=== PATIENT | female | born 1955 | race Caucasian/White ===

== ENCOUNTER → 2017-07-29 | Outpatient (CLI) | payer OTHER ==
[2017-07-29 08:39] LABS: ABSOLUTE LYMPHOCYTES (AUTO) 0.9 10^3/uL (0.5-4.7); ABSOLUTE MONOCYTES (AUTO) 0.3 10^3/uL (0.1-1.4); ABSOLUTE NEUT (AUTO) 1.5 10^3/uL (1.7-8.2); BASOPHILS % (AUTO) 0.7 % (0-2); HEMATOCRIT 40.2 % (36.0-47.0); HEMOGLOBIN 13.7 g/dL (12.0-15.5); LYMPHOCYTES % (AUTO) 31.7 % (13-45); MEAN CORPUSCULAR HEMOGLOBIN 31.1 pg (27.0-33.4); MEAN CORPUSCULAR HGB CONC 34.1 g/dL (32.0-36.0); MEAN CORPUSCULAR VOLUME 91 fl (80-97); MONOCYTES % (AUTO) 11.9 % (3-13); PLATELET COUNT 318 10^3/uL (150-450); RED BLOOD COUNT 4.41 10^6/uL (3.72-5.28); RED CELL DISTRIBUTION WIDTH 13.1 % (11.5-14.0); SEGMENTED NEUTROPHILS % (AUTO) 54.7 % (42-78); TOTAL CELLS COUNTED % (AUTO) 100 %; WHITE BLOOD COUNT 2.8 10^3/uL (4.0-10.5)
[2017-07-29 09:09] LABS: ALANINE AMINOTRANSFERASE 34 U/L (9-52); ALBUMIN 4.1 g/dL (3.5-5.0); ALKALINE PHOSPHATASE 76 U/L (38-126); ANION GAP 7 (5-19); ASPARTATE AMINO TRANSFERASE 26 U/L (14-36); BILIRUBIN,DIRECT 0.2 mg/dL (0.0-0.4); BILIRUBIN,TOTAL 0.7 mg/dL (0.2-1.3); BLOOD UREA NITROGEN 14 mg/dL (7-20); CALCIUM 9.9 mg/dL (8.4-10.2); CARBON DIOXIDE 30 mmol/L (22-30); CHLORIDE 105 mmol/L (98-107); CHOLESTEROL 169.85 mg/dL (0-200); GLUCOSE 91 mg/dL (75-110); MAGNESIUM 1.9 mg/dL (1.6-2.3); POTASSIUM 4.8 mmol/L (3.6-5.0); SODIUM 141.5 mmol/L (137-145); TOTAL PROTEIN 6.4 g/dL (6.3-8.2); TRIGLYCERIDES 32 mg/dL (<150); URIC ACID 3.9 mg/dL (2.5-7.5)
[2017-07-29 09:20] LABS: DIRECT LDL 58 mg/dL (<100)
--- NOTE | 2017-07-29 12:14 | RADIOLOGY REPORT (SQ) ---
EXAM DESCRIPTION: KNEE RIGHT 4 VIEWS COMPLETED DATE/TIME: 07/29/2017 8:40 am REASON FOR STUDY: PAIN IN RT KNEE M25.561 PAIN IN RIGHT KNEE M25.551 PAIN IN RIGHT HIP M25.571 PA IN IN RIGHT ANKLE AND JOINTS OF RIGHT FOOT COMPARISON: None. NUMBER OF VIEWS: Four views. TECHNIQUE: AP, lateral, and both oblique radiographic images acquired of the right knee. LIMITATIONS: None. FINDINGS: MINERALIZATION: Normal. BONES: No acute fracture or dislocation. No worrisome bone lesions. No significant osteophytes. JOINT: No effusion. No chondrocalcinosis. OTHER: No other significant finding. IMPRESSION: NEGATIVE STUDY OF THE RIGHT KNEE. NO EXPLANATION FOR PAIN. TECHNICAL DOCUMENTATION: JOB ID: [id number] [employer]- All Rights Reserved
--- NOTE | 2017-07-29 12:15 | RADIOLOGY REPORT (SQ) ---
EXAM DESCRIPTION: HIP RIGHT AP/LATERAL COMPLETED DATE/TIME: 07/29/2017 8:40 am REASON FOR STUDY: PAIN IN RT HIP M25.561 PAIN IN RIGHT KNEE M25.551 PAIN IN RIGHT HIP M25.571 GUALBERTO N IN RIGHT ANKLE AND JOINTS OF RIGHT FOOT COMPARISON: None. NUMBER OF VIEWS: Two views. TECHNIQUE: AP and frog-leg view of the right hip. LIMITATIONS: None. FINDINGS: MINERALIZATION: Normal. RIGHT HIP: No fracture dislocation. There is joint space narrowing. There is a prominent subchondra l cysts in the acetabulum. This measures 2.5 cm in greatest diameter. OPPOSITE HIP: No fracture or dislocation. No worrisome bone lesions. SOFT TISSUES: No findings. OTHER: No other significant finding. IMPRESSION: Asymmetric degenerative changes in the right hip with a prominent subchondral cyst. No acute fracture or dislocation. TECHNICAL DOCUMENTATION: JOB ID: [id number] [employer]- All Rights Reserved
--- NOTE | 2017-07-29 12:16 | RADIOLOGY REPORT (SQ) ---
EXAM DESCRIPTION: ANKLE RIGHT COMPLETE COMPLETED DATE/TIME: 07/29/2017 8:40 am REASON FOR STUDY: PAIN IN RIGHT ANKLE AND JOINTS OF RIGHT FOOT,RT HIP, RT KNEE M25.561 PAIN IN RIGH T KNEE M25.551 PAIN IN RIGHT HIP M25.571 PAIN IN RIGHT ANKLE AND JOINTS OF RIGHT FOOT COMPARISON: None. NUMBER OF VIEWS: Three views. TECHNIQUE: AP, lateral, and oblique without weight bearing radiographic images acquired of the right ankle. LIMITATIONS: None. FINDINGS: MINERALIZATION: Normal. BONES: No acute fracture or dislocation. No worrisome bone lesions. No significant osteophytes. JOINTS: No effusions. SOFT TISSUES: No soft tissue swelling. No foreign body. OTHER: No other significant finding. IMPRESSION: NO SIGNIFICANT FINDING IN THE RIGHT ANKLE. NO EXPLANATION FOR PAIN. TECHNICAL DOCUMENTATION: JOB ID: [id number] [employer]- All Rights Reserved
== END ==
LOC: OD 07:55
PROVIDERS: ATTEND Family Medicine Geriatric Medicine
DX: M25.561 Pain in right knee (principal); M25.551 Pain in right hip; M25.571 Pain in right ankle and joints of right foot; R25.2 Cramp and spasm; G47.00 Insomnia, unspecified; Z79.899 Other long term (current) drug therapy; M25.851 Other specified joint disorders, right hip
CPT/HCPCS: 36415; 80053; 80061; 83735; 84443; 84550; 85025

== ENCOUNTER → 2017-07-30 | Outpatient (CLI) | payer OTHER ==
--- NOTE | 2017-07-30 17:00 | WOMENS IMAGING REPORT ---
EXAM DESCRIPTION: BILAT SCREENING MAMMO W/CAD COMPLETED DATE/TIME: 07/30/2017 3:06 pm REASON FOR STUDY: ROUTINE SCREENING; Z12.31 Z12.31 ENCNTR SCREEN MAMMOGRAM FOR MALIGNANT NEOPLASM O F SKYLER COMPARISON: None. TECHNIQUE: Standard craniocaudal and mediolateral oblique views of each breast recorded using digita l acquisition. LIMITATIONS: None. FINDINGS: No masses, calcifications or architectural distortion. No areas of suspicion. Read with the assistance of CAD. .[facility] - R2 Cenova Version 1.3 .[facility] Imaging - R2 Cenova Version 1.3 .[facility] Imaging - R2 Cenova Version 2.4 .[facility] [place] - R2 Cenova Version 2.4 .ON LICENSE OF [facility] - R2 Jawbone Breaker Version 9.2 IMPRESSION: NORMAL MAMMOGRAM. BIRADS 1. BREAST DENSITY: c. The breasts are heterogeneously dense, which may obscure small masses. BIRAD: 1 NEGATIVE RECOMMENDATION: ROUTINE SCREENING Please consider bilateral screening tomosynthesis in June 2018 given heterogeneously dense tissue. COMMENT: The patient has been notified of the results by letter per SA requirements. Additional no tification policies are in place for contacting patient with suspicious or incomplete findings. Quality ID #225: The [employer] recommends an annual screening mammogram for women aged 40 years or over. This facility utilizes a reminder system to ensure that all patients receive reminder letters, and/or direct phone calls for appointments. This includes reminders for routine scr eening mammograms, diagnostic mammograms, or other Breast Imaging Interventions when appropriate. Th is patient will be placed in the appropriate reminder system. The [employer] (ACR) has developed recommendations for screening MRI of the breast s in certain patient populations, to be used in conjunction with mammography. Breast MRI surveillanc e may be appropriate for women with more than 20% lifetime risk of developing breast cancer as deter mined by genetic testing, significant family history of the disease, or history of mantle radiation f or Hodgkins Disease. ACR Practice Guidelines 2008. TECHNICAL DOCUMENTATION: FINDING NUMBER: (1) ASSESSMENT: (1) JOB ID: [id number] [employer]- All Rights Reserved
== END ==
LOC: WI 14:40
PROVIDERS: ATTEND Nurse Practitioner Women's Health
DX: Z12.31 Encounter for screening mammogram for malignant neoplasm of breast (principal)
CPT/HCPCS: 77067

== ENCOUNTER → 2017-09-01 | Outpatient (CLI) | payer OTHER ==
[2017-09-01 13:50] LABS: ABSOLUTE EOSINOPHILS # (AUTO) 0.1 10^3/uL (0.0-0.6); ABSOLUTE LYMPHOCYTES (AUTO) 1.5 10^3/uL (0.5-4.7); ABSOLUTE MONOCYTES (AUTO) 0.5 10^3/uL (0.1-1.4); ABSOLUTE NEUT (AUTO) 3.7 10^3/uL (1.7-8.2); BASOPHILS % (AUTO) 0.4 % (0-2); EOSINOPHILS % (AUTO) 1.1 % (0-6); HEMATOCRIT 39.1 % (36.0-47.0); HEMOGLOBIN 13.6 g/dL (12.0-15.5); LYMPHOCYTES % (AUTO) 25.9 % (13-45); MEAN CORPUSCULAR HEMOGLOBIN 30.8 pg (27.0-33.4); MEAN CORPUSCULAR HGB CONC 34.6 g/dL (32.0-36.0); MEAN CORPUSCULAR VOLUME 89 fl (80-97); MONOCYTES % (AUTO) 8.8 % (3-13); PLATELET COUNT 322 10^3/uL (150-450); RED CELL DISTRIBUTION WIDTH 12.6 % (11.5-14.0); SEGMENTED NEUTROPHILS % (AUTO) 63.8 % (42-78); TOTAL CELLS COUNTED % (AUTO) 100 %; WHITE BLOOD COUNT 5.8 10^3/uL (4.0-10.5)
== END ==
LOC: OD 13:08
PROVIDERS: ATTEND Family Medicine Geriatric Medicine
DX: D72.819 Decreased white blood cell count, unspecified (principal)
CPT/HCPCS: 36415; 85025

== ENCOUNTER → 2018-07-01 | Outpatient (CLI) | payer OTHER ==
--- NOTE | 2018-07-01 16:04 | RADIOLOGY REPORT (SQ) ---
EXAM DESCRIPTION: CT ABD/PELVIS NO ORAL OR IV COMPLETED DATE/TIME: 07/01/2018 3:53 pm REASON FOR STUDY: CHRONIC ABDOMINAL PAIN COMPARISON: None. TECHNIQUE: CT scan of the abdomen and pelvis performed without intravenous or oral contrast. Images reviewed with lung, soft tissue, and bone windows. Reconstructed coronal and sagittal MPR images revi ewed. All images stored on PACS. All CT scanners at this facility use dose modulation, iterative reconstruction, and/or weight based d osing when appropriate to reduce radiation dose to as low as reasonably achievable (ALARA). [facility]: Dose Right [facility]: CareDose [facility]: Dose Right [facility]: Teradose 4D [facility]: J-Kan RADIATION DOSE: CT Rad equipment meets quality standard of care and radiation dose reduction techniq ues were employed. CTDIvol: 6.6 mGy. DLP: 344 mGy-cm.mGy. LIMITATIONS: None. FINDINGS: LOWER CHEST: No significant findings. No nodules or infiltrates. NON-CONTRASTED LIVER, SPLEEN, ADRENALS: Punctate calcifications liver and spleen consistent with old granulomatous disease. PANCREAS: No masses. No peripancreatic inflammatory changes. GALLBLADDER: No identified stones by CT criteria. No inflammatory changes to suggest cholecystitis. RIGHT KIDNEY AND URETER: No suspicious masses. Assessment limited by lack of IV contrast. No signif icant calcifications. No hydronephrosis or hydroureter. LEFT KIDNEY AND URETER: No suspicious masses. Assessment limited by lack of IV contrast. No signifi cant calcifications. No hydronephrosis or hydroureter. AORTA AND RETROPERITONEUM: No aneurysm. No retroperitoneal masses or adenopathy. BOWEL AND PERITONEAL CAVITY: No obvious masses or inflammatory changes. No free fluid. APPENDIX: Normal. PELVIS, BLADDER, AND ABDOMINAL WALL:No abnormal masses. No free fluid. Bladder normal. BONES: No significant findings. OTHER: No other significant finding. IMPRESSION: NO SIGNIFICANT OR ACUTE PROCESS IN THE ABDOMEN OR PELVIS. COMMENT: Quality ID # [id number]: Final reports with documentation of one or more dose reduction techniques (e.g., Automated exposure control, adjustment of the mA and/or kV according to patient size, use of iterative reconstruction technique) TECHNICAL DOCUMENTATION: JOB ID: [id number] [employer]- All Rights Reserved Reading location - IP/workstation name: [email or web address] [[email or web address]]
--- NOTE | 2018-07-01 16:17 | XCELERA REPORT ---
[address] [facility] [address] Lower Extremity Venous Evaluation Procedure: Color flow and duplex imaging bilaterally of the veins of the lower extremities as well as the Common Femoral veins. Right Sided Venous Evaluation Normal vessel filling wall to wall, compression and augmentation as well as Colour flow down to the infrageniculate veins. Left Sided Venous Evaluation Normal vessel filling wall to wall, compression and augmentation as well as Colour flow down to the infrageniculate veins. Interpretation Summary No duplex evidence of DVT or obstruction in the bilateral lower extremities. Name: WILLIAM ROSS Age: 62 yrs Gender: Female : 1955 Patient Status: Preadmit Patient Location: [facility] Study Date: 07/01/2018 03:11 PM Reason For Study: BLE PAIN Ordering Physician: SHAD FRANKLIN Performed By: Doretha Ornelas : SHAD FRANKLIN > Ventura Martin
== END ==
LOC: RAD 16:04
PROVIDERS: ATTEND Student in an Organized Health Care Education/Training Program
DX: R10.9 Unspecified abdominal pain (principal); I83.90 Asymptomatic varicose veins of unspecified lower extremity
CPT/HCPCS: 74176; 93970

== ENCOUNTER → 2018-10-21 | Outpatient (CLI) | payer OTHER ==
--- NOTE | 2018-10-22 09:05 | WOMENS IMAGING REPORT ---
EXAM DESCRIPTION: BILAT SCREENING MAMMO W/CAD COMPLETED DATE/TIME: 10/21/2018 10:36 am REASON FOR STUDY: Z12.31 BILATERAL SCREENING MAMMOGRAM Z12.31 ENCNTR SCREEN MAMMOGRAM FOR MALIGNANT NEOPLASM OF SKYLER COMPARISON: 07/30/2017 TECHNIQUE: Standard craniocaudal and mediolateral oblique views of each breast recorded using [place] l acquisition. LIMITATIONS: None. FINDINGS: No masses, calcifications or architectural distortion. No areas of suspicion. Read with the assistance of CAD. .[facility] - R2 Cenova Version 1.3 .[facility] Imaging - R2 Cenova Version 2.1 .[facility] Imaging - R2 Cenova Version 2.4 .[facility] - R2 Cenova Version 2.4 .[facility] - R2 School Commissioner Version 9.2 IMPRESSION: NORMAL MAMMOGRAM. BIRADS 1. BREAST DENSITY: c. The breasts are heterogeneously dense, which may obscure small masses. BIRAD: 1 NEGATIVE RECOMMENDATION: ROUTINE SCREENING COMMENT: The patient has been notified of the results by letter per SA requirements. Additional no tification policies are in place for contacting patient with suspicious or incomplete findings. Quality ID #225: The [employer] [employer] recommends an annual screening mammogram for women aged 40 years or over. This facility utilizes a reminder system to ensure that all patients receive reminder letters, and/or direct phone calls for appointments. This includes reminders for routine scr eening mammograms, diagnostic mammograms, or other Breast Imaging Interventions when appropriate. Th is patient will be placed in the appropriate reminder system. TECHNICAL DOCUMENTATION: FINDING NUMBER: (1) ASSESSMENT: (1) JOB ID: [id number] [employer]- All Rights Reserved Reading location - IP/workstation name: [email or web address]
== END ==
LOC: WI 10:09
PROVIDERS: ATTEND Physician Assistant
DX: Z12.31 Encounter for screening mammogram for malignant neoplasm of breast (principal)
CPT/HCPCS: 77067

== ENCOUNTER → 2019-08-26 | Outpatient (CLI) | payer OTHER ==
--- NOTE | 2019-08-26 10:36 | ST Modified Barium Swallow ---
Recommendation - Recommendations Recommendations: Recommend dysphagia therapy to address pharyngeal residue present on study due to reduced epiglottic inversion. Possible muscle tension component. Recommend continued follow up with GI due to significant symptomology for reflux. Medical Diagnoses - Medical Diagnoses Medical Diagnosis Description & ICD-10 Code(s): laryngopharyngeal reflux, dysphagia Other Medical Diagnoses/Co-Morbidities: per patient report: IBS, reflux, hiatal hernia, anxiety - ICD-10 Tx Diagnosis Coding (1) Laryngopharyngeal reflux ICD-10 Code(s): K21.9 - GASTRO-ESOPHAGEAL REFLUX DISEASE WITHOUT ESOPHAGITIS (2) Dysphagia ICD-10 Code(s): R13.10 - DYSPHAGIA, UNSPECIFIED ST Modified Barium Swallow - General Date: 08/26/19 Referring Physician: Dr. Elizondo Risks/Precautions: None Date of Onset: 01/28/19 - approximate onset date Reason for Referral: difficulty swallowing - History History obtained from: Patient -: Medical - Patient attended independently and acted as her own historian. Patient reports that she feels that her "throat is closing" at time when trying to eat. States this has been going on for approximately 6-8 months with no known precipitating event. Patient reports globus sensation at all times, which can worsen with eating. No reported difficulty with liquids, solids reportedly result in globus sensation and at times feeling that the throat is closing. No reported food allergies, except for very mild egg white allergy. She also reports having to cut some pills that she previously was taking whole. Patient also reports chronic throat clearing, dry mouth and throat, and throat "tightness". Medications: per patient report: pepcid, anxiety medication, baby aspirin, adderall equivalent, water pill, singulair as needed, doxycycline Allergies: per patient report: ibuprofen, naproxen, egg white (mild). Patient reports that she avoids gluten due to IBS, but stated that she was ok to use chino cracker trials for the study. - Functional Status Prior Functional Status: INDEPENDENT: feeding - independent Current Functional Limitations: feeding - globus - Subjective Patient/caregiver goal(s): better swallow Cognitive-Linguistic Function: WNL Speech Intelligibility: WNL Current Nutritional Means: PO Current PO diet: Regular Current symptoms: Coughing, c/o Globus sensation Pain: Patient reports, 0/5 - Objective Assessment: Upright, Left Lateral - Food Trials Used Food trials used: Thin liquids, Pureed, Regular The patient: Was Able to Self Feed - Oral-Motor Skills Dentition: Full Velo-pharyngeal function: Unremarkable Laryngeal Function: clear voicing - Assessment Oral prep: Normal Labial closure: Adequate Leakage: None Mastication: Adequate Lingual Movement: Normal Oral stage: Normal for this Procedure - Pharyngeal Stage Initiation of Pharyngeal Stage Reflex: Normal Decreased laryngeal elevation: No Reduced Velopharyngeal Closure: no Reduced pressure generation: Yes reduced tongue-based retraction: No Pre-swallow pooling in valleculae: Mild Pre-Swallow pooling in pyriforms: None Reduced Thyro-Hyoid approximation: Yes Reduced epiglottic excursion: Yes Multiple Swallows with: Cleared w/ Liquid Assist Post-swallow residulas vallecular: Moderate Post-Swallow residuals in pyriforms: Mild - Fall Risk Assessment Medications/Conditions that increase fall risks include: Antidepressants, sedatives, anti-arrhythmic, diuretic, benzodiazipenes, neuroleptics. BP regulation problems, cardiac problems, balance or gait deficits, neurological problems. Is patient considered at risk for falls: no Fall Risk Actions Taken: No action needed - Behavioral Observations During evaluation process patient: was pleasant, was cooperative, able to answer questions, provided medical history - Treatment / Educational Needs: Treatment/Education Needs: Treatment consisted of patient education on the role of the Speech Pathologist. Patient's plan of care and golas were communicated as well as scheduling and attendance policies. Recommendations for initial home program were shared. Patient demonstrated understanding and verbalized agreement. - Impression/Summary Laryngeal Penetration: Yes - deep penetration of thin liquid seen via cup sip x1. Other shallow penetration seen intermittently with straw sips. Tracheal Aspiration: no Patient presents with: Pharyngeal stage dysph. - mild Risk of Aspiration: Mild Risk due to: intermittent penetration of thin liquids Evaluation and Findings: Patient demonstrated reduced epiglottic inversion, resulting in increased residue in valleculae. Residue increased as texture of solids increased. Intermittent penetration of thin liquid also seen, very deep x1, also possibly due to reduced epiglottic inversion. - Recommendations Solid diet recommendations: Regular Liquid Diet Modification: Thin Dysphagia therapy with FIRESTOPPER INSTALLER: dysphagia therapy - is recommended Recommended techniques: Small Bites and Sips, Alternate Bites/Sips Supervision: Independent Information, Precautions and Recommendations: Patient (Written), Patient (Verbal) Other recommendations: Discussed with patient recommendation for dysphagia therapy to trial exercises for possibly improved pharyngeal function. May also address muscle tension component as indicated. Also discussed with patient to contact her physician for a therapy referral if she has not heard anything in approximately 2 weeks. Patient voiced understanding. - Time Total Time: 30 - Plan of Care Strategies to optimize patient understanding include:: ongoing assessment of educational needs, implementation of educational strategies, and re-education. - - -: Thank you for the opportunity to work with this patient and his/her family. Should you have any questions about this patient's plan or progress, I can be reached at [phone].
--- NOTE | 2019-08-26 10:57 | RADIOLOGY REPORT (SQ) ---
EXAM DESCRIPTION: DANYELIE SWALLOW COMPLETED DATE/TIME: 08/26/2019 9:22 am REASON FOR STUDY: LARYNGOPHARYNGEAL REFLUX K21.9 GASTRO-ESOPHAGEAL REFLUX DISEASE WITHOUT ESOPHAGIT IS globus sensation, dysphagia COMPARISON: None. TECHNIQUE: Videofluoroscopic swallowing examination was performed in conjunction with speech patholo gy. Videofluoroscopic imaging was obtained and reviewed and these are the findings: RADIATION DOSE: 2 minutes 9 seconds of fluoroscopy was used. 1 images saved to PACS. LIMITATIONS: None FINDINGS: The patient was brought into the fluoro room and placed upright on a modified barium swall ow chair. The patient was then given multiple consistencies mixed with barium to swallow under live fluoroscopic video guidance. According to the Speech Pathologist there was laryngeal penetration wit h liquid consistencies. No aspiration. IMPRESSION: LARYNGEAL PENETRATION WITH THE LIQUID CONSISTENCIES WITHOUT ASPIRATION. PLEASE SEE [facility] PATHOLOGIST REPORT FOR OTHER FINDINGS AND RECOMMENDATIONS. COMMENT: Quality ID 145: Final reports for procedures using fluoroscopy that document radiation exp osure indices, or exposure time and number of fluorographic images (if radiation exposure indices are not available) TECHNICAL DOCUMENTATION: JOB ID: [id number] 2010 [employer]- All Rights Reserved Reading location - IP/workstation name: [email or web address]
== END ==
LOC: RAD 08:10
PROVIDERS: ATTEND Otolaryngology
DX: K21.9 Gastro-esophageal reflux disease without esophagitis (principal)
CPT/HCPCS: 74230

== ENCOUNTER → 2019-12-16 | Outpatient (CLI) | payer OTHER ==
--- NOTE | 2019-12-16 12:20 | WOMENS IMAGING REPORT ---
EXAM DESCRIPTION: BILAT SCREENING MAMMO W/CAD IMAGES COMPLETED DATE/TIME: 12/16/2019 8:46 am REASON FOR STUDY: ROUTINE BILATERAL SCREENING;Z12.31 Z12.31 ENCNTR SCREEN MAMMOGRAM FOR MALIGNANT N EOPLASM OF SKYLER COMPARISON: None. EXAM PARAMETERS: Standard craniocaudal and mediolateral oblique views of each breast recorded using digital acquisition. 10/21/2018 and 07/30/2017. Read with the assistance of CAD. .COUNTS INCLUDE 234 BEDS AT THE [facility] - R2 Tool Supervisor Version 9.2 LIMITATIONS: None. FINDINGS: No suspicious masses, suspicious calcifications or architectural distortion. No areas of c oncern. IMPRESSION: NEGATIVE MAMMOGRAM. BIRADS 1 BREAST DENSITY: c. The breasts are heterogeneously dense, which may obscure small masses. BIRAD: ASSESSMENT: 1 NEGATIVE RECOMMENDATION: ROUTINE SCREENING COMMENT: The patient has been notified of the results by letter per MQSA requirements. Additional no tification policies are in place for contacting patient with suspicious or incomplete findings. Quality ID #225: The [place] [employer] recommends an annual screening mammogram for women aged 40 years or over. This facility utilizes a reminder system to ensure that all patients receive reminder letters, and/or direct phone calls for appointments. This includes reminders for routine scr eening mammograms, diagnostic mammograms, or other Breast Imaging Interventions when appropriate. Th is patient will be placed in the appropriate reminder system. TECHNICAL DOCUMENTATION: FINDING NUMBER: (1) ASSESSMENT: (1) JOB ID: [id number] 2010 [employer]- All Rights Reserved Reading location - IP/workstation name: [email or web address]
== END ==
LOC: WI 08:29
PROVIDERS: ATTEND Physician Assistant
DX: Z12.31 Encounter for screening mammogram for malignant neoplasm of breast (principal)
CPT/HCPCS: 77067